=== PATIENT | male | born 1995 | race Caucasian/White ===

== ENCOUNTER 2024-02-29 06:37 | Emergency (ER) | payer BC ==
[2024-02-29] MEDS: methylPREDNISolone Sodium Succinate 40 MG/1 ML SDV IM ONE (07:54)
[2024-02-29] MEDS: Orphenadrine 60 MG/2 ML Inj IM ONE (07:55)
== END 2024-02-29 07:48 | disposition home or self-care (01) ==
LOC: CC.ED 06:37
DX: S39.012A Strain of muscle, fascia and tendon of lower back, initial encounter (principal); F17.210 Nicotine dependence, cigarettes, uncomplicated; Z79.899 Other long term (current) drug therapy; X58.XXXA Exposure to other specified factors, initial encounter
CPT/HCPCS: 96372; 99283; J2360; J2919

== ENCOUNTER 2025-09-01 16:38 | Emergency (ER) | payer OTHER ==
[2025-09-01 17:08] LABS: BASOPHILS ABSOLUTE AUTO 0.03 10^3/uL (0.00-0.50); BASOPHILS PERCENT AUTO 0.2 % (0-1); EOSINOPHILS ABSOLUTE AUTO 0.32 10^3/uL (0.00-1.50); EOSINOPHILS PERCENT AUTO 2.5 % (0-6); IMMATURE GRAN ABSOLUTE AUTO 0.05 10^3/uL (0.00-0.49); IMMATURE GRAN PERCENT AUTO 0.4 % (0.0-4.9); LYMPHOCYTES ABSOLUTE AUTO 2.83 10^3/uL (0.60-5.00); LYMPHOCYTES PERCENT AUTO 22.3 % (24-44); MONOCYTES ABSOLUTE AUTO 0.58 10^3/uL (0.00-1.50); MONOCYTES PERCENT AUTO 4.6 % (0-10); NEUTROPHILS ABSOLUTE AUTO 8.86 x10^3/uL (1.80-8.00); NEUTROPHILS PERCENT AUTO 70.0 % (41-71); PLATELET COUNT,PLT 253 10^3/uL (150-400); RED BLOOD CELL COUNT 5.22 x10^6/uL (4.50-6.00); WHITE BLOOD CELL COUNT,WBC 12.7 10^3/uL (4.0-11.0)
[2025-09-01 17:22] LABS: ALANINE AMINOTRANSFERASE,ALT 68.0 U/L (12-78); ASPARTATE AMNIOTRANSFERASE,AST 21.0 U/L (15-37); BILIRUBIN TOTAL 0.3 mg/dL (0.0-1.0); BLOOD UREA NITROGEN,BUN 12.0 mg/dL (7-18); CARBON DIOXIDE,CO2 28.0 mmol/L (21-32); CHLORIDE,CL 101.0 mEq/L (98-106); CREATININE 1.0 mg/dL (0.7-1.3); EST CRCL DRUG DOSING (CG) 112.95 mL/min; GLUCOSE RANDOM 158.0 mg/dL (75-99); POTASSIUM,K 3.9 mEq/L (3.5-5.0); PROTEIN TOTAL,TP 7.1 g/dL (6.4-8.2); SODIUM,NA 139.0 mEq/L (136-145)
[2025-09-01 17:23] LABS: ESTIMATED GFR 103.0 mL/min (>=60)
[2025-09-01] MEDS: Ketorolac 30 MG/ML SDV IM ONE (17:34)
== END 2025-09-01 17:40 | disposition home or self-care (01) ==
LOC: CC.ED 16:38
DX: M79.671 Pain in right foot (principal); I10 Essential (primary) hypertension; E11.9 Type 2 diabetes mellitus without complications; Z86.16 Personal history of COVID-19
CPT/HCPCS: 36415; 73630-RT; 80053; 84550; 85025; 86140; 96372; 99283; J1885